=== PATIENT | female | born 1990 | race Hispanic/Latino ===

== ENCOUNTER 2017-06-29 07:08 | Outpatient (CLI) | payer OTHER | END 2017-06-29 07:09 | disposition home or self-care (01) | LOC: BICULT 07:08 | PROVIDERS: ATTEND Internal Medicine Gastroenterology | DX: K80.20 Calculus of gallbladder without cholecystitis without obstruction (principal); B18.2 Chronic viral hepatitis C | CPT/HCPCS: 76705 ==

== ENCOUNTER 2019-08-23 13:28 | Emergency (ER) | payer MEDICAID, SELFPAY ==
[2019-08-23 14:07] LABS: Bilirubin Negative (Negative); Blood, Urine Negative (Negative); Clarity Clear (Clear); Glucose, Urine (Dipstick) Normal (Negative); Ketone, Urine Negative (Negative); Leukocyte 250 Leu/uL (Negative); Nitrite Negative (Negative); Protein, Urine (Dipstick) Negative (Neg-Trace); Specific Gravity, Urine 1.024 (1.002-1.036); Squamous Epithelial 0-3 HPF (0-3); Urobilinogen Normal mg/dL (Less than 2); pH, Urine 5.5 (5.0-9.0)
[2019-08-23 14:08] LABS: Bacteria/HPF 1+ HPF (None Seen)
[2019-08-23 14:13] LABS: #Eosinphils 0.3 thou/uL (0.0-0.7); #Lymphocytes 2.1 thou/uL (1.20-3.40); #Monocytes 0.7 thou/uL (0.11-0.59); #Neutrophils 7.7 thou/uL (1.40-6.50); %Basophils 0.2 % (0.0-1.0); %Eosinophils 2.3 % (0.0-10.0); %Lymphocytes 19.5 % (21.0-51.0); %Monocytes 6.3 % (0.0-10.0); %Neutrophils 71.6 % (42.0-75.0); Mean Corpuscular HGB CONC 32.5 g/dL (32.0-36.0); Mean Corpuscular Hemoglobin 28.3 pg (27.0-31.0); Mean Platelet Volume 8.3 fL (7.4-10.4); Platelet Count 265 thou/uL (130-400); White Blood Cell (WBC) Count 10.8 thou/uL (4.8-10.8)
--- NOTE | 2019-08-23 14:25 | ULT ---
EXAM: Pelvic ultrasound HISTORY: Light spotting in a female COMPARISON: None TECHNIQUE: Multiple grayscale and color Doppler images were obtained in a transabdominal pelvic ultra sound. Spectral analysis of the Doppler waveforms of the ovaries were performed. FINDINGS: UTERUS: There is an intrauterine gestational sac. This contains a yolk sac and pole. [place]-rump length: 5.48 centimeters which estimates gestational age at 12 weeks 1 day. A heart rate is detected at 160 bpm. A small area of subchorionic hemorrhage is seen adjacent to the gestational sac. No free fluid is seen in the pelvis. RIGHT OVARY: Normal flow without focal mass. LEFT OVARY: Normal flow without focal mass. IMPRESSION: 1. Single live intrauterine with estimated age of 12 weeks 1 day. 2. Small subchorionic hemorrhage
== END 2019-08-23 16:50 | disposition home or self-care (01) ==
LOC: ERS 13:28
DX: O20.8 Other hemorrhage in early pregnancy (principal); O99.511 Diseases of the respiratory system complicating pregnancy, first trimester; Z3A.12 12 weeks gestation of pregnancy
CPT/HCPCS: 36415; 76856; 81003; 81015; 84702; 85025; 86850; 86900; 86901; 93976

== ENCOUNTER 2019-11-23 00:12 | Day surgery (SDC) | payer MEDICAID, OTHER ==
[2019-11-23 00:52] VITALS: BMI 36.9
--- NOTE | 2019-11-23 01:22 | PDOC.LDHP ---
Labor and Delivery H&P Chief complaint: decreased movement HPI: Patient is a 28 yo at 25 weeks gestational age who presents with complaint of decreased movement for past 8-9 hours. Says was outside earlier today at park with her 4 yo son and he ran into her side. Since that time feels like baby has moved less this evening so decided to come in. Also feels like this baby moves differently versus her first . Denies any abdominal pain, back pain, vaginal bleeding, vaginal discharge, loss of fluid. Current gestational age (weeks): 25 Dating criteria: last menstrual period Grav: 3 Para: 1 (1011) OB History Details: Follows with Dr. Arambula this . Hx of term , delivered in 2016, no complications Hx of SAB in 2019 at approx. 4-5 weeks gestational age Current complications: none Abnormal US findings: No Past Medical History: denies any major issues Current medications: pre-amelia vitamins Previous surgical history: none Allergies/Adverse Reactions: Allergies Allergy/AdvReac Type Severity Reaction Status Date / Time No Known Allergies Allergy Verified 11/23/19 00:53 Social history: none - Physical Exam Vital signs reviewed and normal: yes General: NAD, resting Heart: RRR Lungs: CTAB Abdomen: NTTP Extremeties: no edema FHT: category 1 [place] contractions every: none seen - OB Labs Blood type: unknown RH: unknown Antibody Screen: unknown HIV: unknown RPR: unknown HEPSAg: unknown 1 hour GCT: unknown GBS: unknown Urine drug screen: not done - Plan -: Patient is a 28 yo at 25 wga who presents with decreased movement complaint: #Decreased Movement, resolved -has felt baby move since arrival, possible decreased movement due to sleep cycle vs anterior placenta -20 min heart tracing reactive and reassuring with accels x 4 seen, baseline FHR 145 bpm #Second Trimester -followed by Dr. Arambula, next appointment with him is in 2 weeks -has not had 2-hr GTT yet, says is scheduled to get done next week -per patient her IOB labs were reportedly normal (no records available to review) Dispo: Stable for discharge back to home at this time. FHT reactive and reassuring. Provided reassurance to mother and discussed eventually needing to start kick counts around 28 wga. Discharged to home at 0130, 11/22/2019 in stable condition. Addendum - Attending - Attending Attestation Date/Time: 11/23/19 3738 I personally evaluated the patient and discussed the management with Dr. Rodriguez. I agree with the History, Examination, Assessment and Plan documented above.
== END 2019-11-23 01:37 | disposition home or self-care (01) ==
LOC: L&D/OP 00:12
PROVIDERS: ATTEND Obstetrics & Gynecology
DX: O36.8120 Decreased fetal movements, second trimester, not applicable or unspecified (principal); O09.292 Supervision of pregnancy with other poor reproductive or obstetric history, second trimester; Z3A.25 25 weeks gestation of pregnancy
CPT/HCPCS: 99282

== ENCOUNTER 2020-02-15 15:05 | Day surgery (SDC) | payer OTHER ==
[2020-02-15 15:49] VITALS: BMI 46.8
[2020-02-15] MEDS ORDERED: hydrALAZINE 20 MG/ML VIAL SLOW IVP PRN (16:03)
--- NOTE | 2020-02-15 16:09 | PDOC.LDHP ---
Labor and Delivery H&P Chief complaint: contractions, other (malaise) HPI: 29yo presents to L&D @ 37.3 wks EGA for evaluation of contractions and general malaise. She states she had an appt yesterday with PCP and he checked her and she was 3cm dilated. She had her membranes stripped. Today she has had more frequent, painful contractions. She also endorses a cough that has been present since last night and generalized malaise that has been present for the past 2 days. PMH: h/o chlamydia and trichomonas. PSH: none Meds: PNV PCP: Dr. Arambula Current gestational age (weeks): 37 (3d) Due date: 03/04/20 Dating criteria: last menstrual period Grav: 3 Para: 1 Current complications: none Past Medical History: GERD Current medications: pre- vitamins Previous surgical history: none Allergies/Adverse Reactions: Allergies Allergy/AdvReac Type Severity Reaction Status Date / Time No Known Allergies Allergy Verified 02/15/20 15:42 Social history: none - Physical Exam Vital signs reviewed and normal: yes General: NAD, resting Heart: RRR Lungs: nonlabored breathing Abdomen: NTTP Extremeties: no edema FHT: category 1 [place] contractions every: irregular - Vaginal Exam cm dilated: 3 Effacement: 50% Station: -2 - OB Labs Blood type: O RH: positive Antibody Screen: negative HIV: negative RPR: negative HEPSAg: negative 1 hour GCT: negative GBS: negative Rubella: immune - Assessment sIUP - Plan -: sIUP - c/o mild contractions. Will monitor. Initial SVE /-2. Will recheck in 2 hours and assess for progression of labor. URI symptoms - COVID swab ordered. - CBC, CMP, urine pro/cr ordered. UPDATE: recheck by RN 2 hours later was unchanged from prior (and clinic) exam. Labs WNL. FHT category 1 without significant contraction pattern. Recommend outpatient f/u with PCP. COVID swab pending. Will call patient with results tomorrow. This plan was discussed with Dr. West attending. Kody MARIO PGY2 Addendum - Attending - Attending Attestation Date/Time: 02/15/20 190 I personally evaluated the patient and discussed the management with Dr. Croft. I agree with the History, Examination, Assessment and Plan documented above.
[2020-02-15] MEDS ORDERED: Lactated Ringer's 1,000 ML IV SCH (16:15)
[2020-02-15 16:26] LABS: #Eosinphils 0.2 thou/uL (0.0-0.7); #Lymphocytes 1.6 thou/uL (1.20-3.40); #Monocytes 0.7 thou/uL (0.11-0.59); #Neutrophils 6.4 thou/uL (1.40-6.50); %Eosinophils 2.2 % (0.0-10.0); %Lymphocytes 17.9 % (21.0-51.0); %Monocytes 7.4 % (0.0-10.0); %Neutrophils 72.5 % (42.0-75.0); Hemoglobin 11.4 g/dL (12.0-16.0); Mean Corpuscular Hemoglobin 28.7 pg (27.0-31.0); Mean Corpuscular Volume 84.4 fL (78.0-98.0); Mean Platelet Volume 9.3 fL (7.4-10.4); Platelet Count 221 thou/uL (130-400); RBC Distribution Width 13.8 % (11.5-14.5); Red Blood Cell (RBC) Count 3.96 mill/uL (4.20-5.40); White Blood Cell (WBC) Count 8.8 thou/uL (4.8-10.8)
[2020-02-15 16:50] LABS: ALT (SGPT) 10 U/L (8-55); AST (SGOT) 14 U/L (5-34); Albumin 3.1 g/dL (3.5-5.0); Alkaline Phosphatase 143 U/L (40-110); Anion Gap 14 mmol/L (10-20); BUN (Urea Nitrogen) 11 mg/dL (7.0-18.7); Bilirubin, Total Less than 0.2 mg/dL (0.2-1.2); Calc. Creatinine Clearance 184 mL/min (70-130); Calcium 8.6 mg/dL (7.8-10.44); Carbon Dioxide 20 mmol/L (22-29); Chloride 107 mmol/L (98-107); Globulin 3.2 g/dL (2.4-3.5); Glucose 91 mg/dL (70-105); Potassium 4.2 mmol/L (3.5-5.1); Protein, Total 6.3 g/dL (6.0-8.3); Sodium 137 mmol/L (136-145)
[2020-02-15 18:42] LABS: Creatinine, Urine 69.39 mg/dL (47-110); Protein, Urine Random Quant Less than 10 mg/dL (1-14)
[2020-02-15 23:55] LABS: SARS-CoV-2 MS2 Positive; SARS-CoV-2 N Gene Negative; SARS-CoV-2 S Gene Negative; SARS-CoV-2 by NAA Not Detected (NotDetected); SARS-CoV-2 orf1ab Negative
== END 2020-02-15 19:30 | disposition home or self-care (01) ==
LOC: L&D/OP 15:05
PROVIDERS: ATTEND Obstetrics & Gynecology
DX: O47.1 False labor at or after 37 completed weeks of gestation (principal); O99.891 Other specified diseases and conditions complicating pregnancy; R53.81 Other malaise; R05 Cough; Z3A.37 37 weeks gestation of pregnancy; Z20.822 Contact with and (suspected) exposure to COVID-19; Z86.19 Personal history of other infectious and parasitic diseases
CPT/HCPCS: 36415; 80053; 82570; 84156; 85025; 87635; U0003

== ENCOUNTER 2020-02-24 10:54 | Outpatient (CLI) | payer OTHER ==
[2020-02-24 18:29] LABS: SARS-CoV-2 PCR by NAA Not Detected (NotDetected)
== END 2020-02-24 10:55 | disposition home or self-care (01) ==
LOC: LABBT 10:54
PROVIDERS: ATTEND Obstetrics & Gynecology
DX: Z01.812 Encounter for preprocedural laboratory examination (principal); Z20.822 Contact with and (suspected) exposure to COVID-19
CPT/HCPCS: 87635; U0003; U0005

== ENCOUNTER 2020-02-24 16:13 | Inpatient (IN) | payer OTHER ==
[~2020-02-24 16:13] MED LIST: Bupivacaine HCl 0.25%/Epi 0.0005/PF 10 ML VIAL FS ONE
[2020-02-24 16:54] VITALS: BMI 46.8
[2020-02-24] MEDS ORDERED: Acetaminophen 500 MG TAB PO PRN (17:19)
[2020-02-24] MEDS ORDERED: Butorphanol Tartrate 1 MG/ML VIAL SLOW IVP PRN (17:19)
[2020-02-24] MEDS ORDERED: Carboprost 250 MCG/ML AMP IM PRN (17:19)
[2020-02-24] MEDS ORDERED: NS / Oxytocin 40 units/1000ml 1,000 ML IV PRN (17:19)
[2020-02-24] MEDS ORDERED: Ondansetron PF 4 MG/2 ML Vial IVP PRN ×2 (17:19→19:27)
[2020-02-24] MEDS ORDERED: hydrALAZINE 20 MG/ML VIAL SLOW IVP PRN (17:19)
[2020-02-24] MEDS ORDERED: Misoprostol 200 MCG TAB PR PRN (17:19)
[2020-02-24] MEDS ORDERED: Methylergonovine 0.2 MG/ML VIAL IM PRN (17:19)
[2020-02-24] MEDS ORDERED: HYDROcodone/Acetaminophen 5/325 mg Tablet PO PRN ×2 (17:19)
[2020-02-24] MEDS ORDERED: Ibuprofen 800 MG TAB PO PRN (17:19)
[2020-02-24] MEDS ORDERED: Promethazine HCl 25 MG/ML VIAL IM PRN ×2 (17:19→19:27)
[2020-02-24] MEDS ORDERED: Lidocaine 1% (PF) 30 ML VIAL SC PRN (17:19)
[2020-02-24] MEDS ORDERED: Diphenoxylate HCl/Atropine Tablet PO PRN ×2 (17:19)
[2020-02-24] MEDS ORDERED: hydrALAZINE 20 MG/ML VIAL ONE (17:23)
[2020-02-24 17:42] LABS: Hemoglobin 11.7 g/dL (12.0-16.0); Mean Corpuscular HGB CONC 34.3 g/dL (32.0-36.0); Mean Corpuscular Hemoglobin 28.7 pg (27.0-31.0); Mean Corpuscular Volume 83.6 fL (78.0-98.0); Mean Platelet Volume 9.5 fL (7.4-10.4); Platelet Count 229 thou/uL (130-400); RBC Distribution Width 14.3 % (11.5-14.5); Red Blood Cell (RBC) Count 4.09 mill/uL (4.20-5.40)
[2020-02-24] MEDS ORDERED: NS w/ Oxytocin 30 units 500 ML IV PRN (18:09)
[2020-02-24] MEDS ORDERED: Fentanyl 4 mcg/Bup 0.1% Cadd 100 ML ONE (18:16)
[2020-02-24 18:21] LABS: Syphilis Antibody Nonreactive (Nonreactive); Syphilis Antibody Index 0.06 S/CO (<1.00 Non-Reactive)
[2020-02-24 18:22] LABS: HBSAg Index 0.19 S/CO (0-0.99); Hep B Surf Ag Non-Reactive S/CO (NonReactive)
[2020-02-24] MEDS: Lactated Ringer's 1,000 ML IV SCH ×2 (18:42→19:16)
[2020-02-24] MEDS ORDERED: Naloxone HCl 0.4 mg/ml Vial IVP PRN ×2 (19:27)
[2020-02-24] MEDS ORDERED: ePHEDrine 50 MG/ML VIAL SLOW IVP PRN (19:27)
[2020-02-24] MEDS ORDERED: diphenhydrAMINE 50 MG/ML VIAL IVP PRN (19:27)
[2020-02-24] MEDS ORDERED: Acetaminophen 325 MG TAB PO PRN (19:27)
[2020-02-24] MEDS ORDERED: Lactated Ringer's 500 ML IV PRN (19:27)
[2020-02-24] MEDS ORDERED: Communication Order-Pharmacy FS SCH (19:30)
[2020-02-24] MEDS ORDERED: Fentanyl 4 mcg/Bupivacaine 0.1% Cassette 100 ML EPIDURAL SCH (19:30)
[2020-02-25] MEDS: Lactated Ringer's 1,000 ML IV SCH (00:20)
[2020-02-25] MEDS ORDERED: Fentanyl 4 mcg/Bup 0.1% Cadd 100 ML ONE (03:22)
[2020-02-25] MEDS ORDERED: Preparation H Ointment 28 GM TUBE PR PRN (07:28)
[2020-02-25] MEDS ORDERED: diphenhydrAMINE 25 MG CAP PO PRN (07:28)
[2020-02-25] MEDS ORDERED: Lanolin Ointment 7 GM TUBE TOP PRN (07:28)
[2020-02-25] MEDS ORDERED: Benzocaine-Menthol 82.5 ML CAN TOP PRN (07:28)
[2020-02-25] MEDS ORDERED: Zolpidem Tartrate 5 MG TAB PO PRN (07:28)
[2020-02-25] MEDS ORDERED: Ondansetron PF 4 MG/2 ML Vial IVP PRN (07:28)
[2020-02-25] MEDS ORDERED: Misoprostol 200 MCG TAB VAG PRN (07:28)
[2020-02-25] MEDS ORDERED: Adacel (T-DAP) 0.5 ML SYRINGE IM ONE (07:28)
[2020-02-25] MEDS ORDERED: hydrALAZINE 20 MG/ML VIAL SLOW IVP PRN (07:28)
[2020-02-25] MEDS ORDERED: Bisacodyl 10 MG SUPP PR PRN (07:28)
[2020-02-25] MEDS ORDERED: Milk Of Magnesia 30 ML UDCUP PO PRN (07:28)
[2020-02-25] MEDS ORDERED: HYDROcodone/Acetaminophen 5/325 mg Tablet PO PRN (07:28)
[2020-02-25] MEDS ORDERED: Acetaminophen 325 MG TAB PO PRN (07:30)
[2020-02-25] MEDS ORDERED: NS w/ Oxytocin 30 units 500 ML IV SCH (07:30)
[2020-02-25] MEDS: Ferrous Sulfate 325 MG TAB PO SCH ×2 (11:38→17:14)
[2020-02-25] MEDS: Docusate Calcium (SURFAK) 240 MG CAP PO SCH ×2 (11:38→21:38)
[2020-02-25] MEDS: Prenatal Vitamin 1 TAB PO SCH (11:39)
[2020-02-25] MEDS: Ibuprofen 800 MG TAB PO SCH ×2 (13:51→21:38)
[2020-02-25] MEDS: HYDROcodone/Acetaminophen 5/325 mg Tablet PO PRN (13:58)
[2020-02-26] MEDS: Ibuprofen 800 MG TAB PO SCH ×2 (05:19→14:22)
[2020-02-26] MEDS: Ferrous Sulfate 325 MG TAB PO SCH (07:23)
[2020-02-26] MEDS: Docusate Calcium (SURFAK) 240 MG CAP PO SCH (09:40)
[2020-02-26] MEDS: Prenatal Vitamin 1 TAB PO SCH (09:40)
[2020-02-26] MEDS: HYDROcodone/Acetaminophen 5/325 mg Tablet PO PRN (12:20)
[2020-02-26 16:10] VITALS: BP 130/82; TEMP 98.2
== END 2020-02-26 17:50 | disposition home or self-care (01) | DRG 807 ==
LOC: L&D/OP 16:13 → L&D 18:48 → 3SW 02-25 10:22
PROVIDERS: ADMIT Obstetrics & Gynecology; ATTEND Obstetrics & Gynecology
PROC: 10E0XZZ Delivery of Products of Conception, External Approach (ICD-10-PCS; principal; 2020-02-25)
PROC: 0KQM0ZZ Repair Perineum Muscle, Open Approach (ICD-10-PCS; 2020-02-25)
PROC: 10907ZC Drainage of Amniotic Fluid, Therapeutic from Products of Conception, Via Natural or Artificial Opening (ICD-10-PCS; 2020-02-25)
DX: O70.1 Second degree perineal laceration during delivery (principal); Z37.0 Single live birth; Z3A.38 38 weeks gestation of pregnancy; Z01.812 Encounter for preprocedural laboratory examination; Z20.822 Contact with and (suspected) exposure to COVID-19
CPT/HCPCS: 36415; 51702; 85027; 86780; 86850; 86900; 86901; 87340; 87635; 99285; J0360; J2590; U0003; U0005

== ENCOUNTER 2021-08-31 17:42 | Emergency (ER) | payer OTHER | END 2021-08-31 18:45 | disposition home or self-care (01) | LOC: ERS 17:42 | DX: B35.4 Tinea corporis (principal); J45.909 Unspecified asthma, uncomplicated | CPT/HCPCS: 99282 ==